=== PATIENT | female | born 1990 | race Caucasian/White ===

== ENCOUNTER 2021-12-10 22:04 | Emergency (ER) | payer SELFPAY ==
[~2021-12-10] VITALS: Ht 177.8 cm; Wt 114.0 kg
[2021-12-10 22:36] VITALS: BP 147/94
[2021-12-10] MEDS ORDERED: LIDOCAINE HCL/PF 1% 10 MG/ML 5ML VIAL INFIL ONE (23:00)
[2021-12-10] MEDS ORDERED: HYDROCODONE/ACETAMINOPHEN 5/325MG TABLET PO ONE (23:00)
[2021-12-10] MEDS ORDERED: BACITRACIN ZINC OINT UDPKT TOP ONE (23:00)
[2021-12-10] MEDS ORDERED: LIDOCAINE HCL 1% 10 MG/ML 10ML VIAL INJ NR (23:30)
[2021-12-11] MEDS ORDERED: IBUP-2030 MT (00:46)
[2021-12-11] MEDS ORDERED: BO1 TP (00:46)
== END 2021-12-11 01:20 | disposition home or self-care (01) ==
LOC: ER 22:04
DX: S09.8XXA Other specified injuries of head, initial encounter (principal); S80.01XA Contusion of right knee, initial encounter; S60.222A Contusion of left hand, initial encounter; S61.512A Laceration without foreign body of left wrist, initial encounter; V00.831A Fall from motorized mobility scooter, initial encounter; Y93.89 Activity, other specified; Y92.9 Unspecified place or not applicable
CPT/HCPCS: 12002; 12011; 73110; 73130; 73562; 99284; J3490